=== PATIENT | female | born 1980 | race African-American/Black ===

== ENCOUNTER 2017-12-18 17:18 | Emergency (ER) | payer OTHER ==
[~2017-12-18] VITALS: Ht 144.8 cm; Wt 74.4 kg
[~2017-12-18 17:18] MED LIST: CARAFATE 1 GM TA1 G1 PO; GUAIFENESIN WI120 ML PO; IBUPROFEN 600600 M1 PO; NORCO 5-325 TA1 EACH PO; PRILOSEC 20 MG20 MG PO; PROMETHAZINE-C120 ML PO; TESSALON PERLE100 MG PO; VITAMIN D50000 UNIT
[2017-12-18] MEDS ORDERED: OSELB75 PO (18:13)
[2017-12-18] MEDS ORDERED: PROMETHAZINE/C118 ML PO (18:13)
[2017-12-18] MEDS ORDERED: TESSALON PERLE100 MG PO (18:14)
== END 2017-12-18 18:52 | disposition home or self-care (01) ==
LOC: ER 17:18
DX: J11.1 Influenza due to unidentified influenza virus with other respiratory manifestations (principal)

== ENCOUNTER 2018-09-14 17:31 | Emergency (ER) | payer OTHER ==
[~2018-09-14] VITALS: Ht 149.9 cm; Wt 64.9 kg
[~2018-09-14 17:31] MED LIST changes: +OSELB75 PO; +PROMETHAZINE/C118 ML PO
[2018-09-14] MEDS ORDERED: TESSALON PERLE100 MG PO (18:29)
[2018-09-14] MEDS ORDERED: GUAIFEN-CODEINE10 ML PO (18:29)
[2018-09-14 18:31] VITALS: BP 120/78
== END 2018-09-14 18:40 | disposition home or self-care (01) ==
LOC: ER 17:31
DX: J06.9 Acute upper respiratory infection, unspecified (principal); R51 Headache

== ENCOUNTER 2019-04-12 20:57 | Emergency (ER) | payer OTHER ==
[~2019-04-12] VITALS: Ht 144.8 cm; Wt 74.8 kg
[~2019-04-12 20:57] MED LIST changes: +GUAIFEN-CODEINE10 ML PO
[2019-04-12 21:04] VITALS: BP 155/98
== END 2019-04-12 22:41 | disposition home or self-care (01) ==
LOC: ER 20:57
DX: H10.11 Acute atopic conjunctivitis, right eye (principal); J06.9 Acute upper respiratory infection, unspecified

== ENCOUNTER 2019-04-13 05:44 | Emergency (ER) | payer OTHER ==
[~2019-04-13] VITALS: Ht 144.8 cm; Wt 74.8 kg
[2019-04-13 06:15] VITALS: BP 130/84
== END 2019-04-13 06:33 | disposition home or self-care (01) ==
LOC: ER 05:44
DX: H10.33 Unspecified acute conjunctivitis, bilateral (principal)

== ENCOUNTER 2019-04-15 02:43 | Emergency (ER) | payer OTHER ==
[~2019-04-15] VITALS: Ht 144.8 cm; Wt 74.8 kg
[2019-04-15 03:59] VITALS: BP 133/85
== END 2019-04-15 04:01 | disposition home or self-care (01) ==
LOC: ER 02:43
DX: J02.9 Acute pharyngitis, unspecified (principal)

== ENCOUNTER 2021-02-19 06:54 | Emergency (ER) | payer OTHER ==
[~2021-02-19] VITALS: Ht 144.8 cm; Wt 69.4 kg
[2021-02-19 07:00] VITALS: BP 113/57
[2021-02-19] MEDS ORDERED: KEFLEX500 M1 PO (07:20)
[2021-02-19] MEDS ORDERED: BETAMETHASONE D50 G2 TOP (07:20)
== END 2021-02-19 07:31 | disposition home or self-care (01) ==
LOC: ER 06:54
DX: R21 Rash and other nonspecific skin eruption (principal)

== ENCOUNTER 2021-06-06 22:40 | Emergency (ER) | payer BC, OTHER ==
[~2021-06-06] VITALS: Ht 144.8 cm; Wt 69.0 kg
[~2021-06-06 22:40] MED LIST changes: +BETAMETHASONE D50 G2 TOP; +KEFLEX500 M1 PO
[2021-06-06] MEDS ORDERED: NOHOMEMEDICATIONS (23:05)
[2021-06-07] MEDS ORDERED: ANTIFUNGAL30 GM TOP (00:31)
[2021-06-07 00:42] VITALS: BP 132/87
== END 2021-06-07 00:44 | disposition home or self-care (01) ==
LOC: ER 22:40
DX: R21 Rash and other nonspecific skin eruption (principal)

== ENCOUNTER 2021-07-26 21:31 | Emergency (ER) | payer BC, OTHER ==
[~2021-07-26 21:31] MED LIST changes: +ANTIFUNGAL30 GM TOP; +NOHOMEMEDICATIONS
[2021-07-26 23:03] VITALS: BP 128/72
[2021-07-29] MEDS ORDERED: AMOXICILLIN 50500 M1 PO (13:16)
== END 2021-07-26 23:04 | disposition home or self-care (01) ==
LOC: ER 21:31
PROVIDERS: Nurse Practitioner Family
DX: J06.9 Acute upper respiratory infection, unspecified (principal); Z20.822 Contact with and (suspected) exposure to COVID-19; Z79.899 Other long term (current) drug therapy